=== PATIENT | female | born 1965 | race Caucasian/White ===

== ENCOUNTER → 2017-02-13 | Outpatient (CLI) | payer OTHER | END | disposition home or self-care (01) | LOC: RAD 13:00 | DX: R06.02 Shortness of breath (principal) | CPT/HCPCS: 71275 ==

== ENCOUNTER → 2017-03-05 | Outpatient (CLI) | payer OTHER | END | disposition home or self-care (01) | LOC: RES 02-12 08:30 → RAD 02-12 08:30 → RES 02-21 13:00 | DX: J45.909 Unspecified asthma, uncomplicated (principal) | CPT/HCPCS: 94070; 94727; 94729 ==